=== PATIENT | male | born 1940 | race Caucasian/White ===

== ENCOUNTER 2021-04-07 12:33 | Inpatient (IN) | payer MEDICARE, OTHER ==
[~2021-04-07] VITALS: Ht 180.3 cm; Wt 64.1 kg
[2021-04-07 13:53] LABS: BASOPHIL 0.6 % (0-2); EOSINOPHIL 0.8 % (0-7); HCT 33.9 % (42.0-52.0); HGB 11.5 g/dl (13.2-18.0); LYMPHOCYTE 24.3 % (15-48); MCH 35.5 pg (25.0-31.0); MCHC 33.9 g/dL (32.0-36.0); MCV 104.6 fL (78.0-100.0); MONOCYTE 7.4 % (0-12); MPV 10.1 fL (6.0-9.5); NEUTROPHIL 66.7 % (41-80); NRBC 0; PLT 216 K/uL (150-400); RBC 3.24 M/uL (4.70-6.00); RDW 12.7 % (11.5-14.0); WBC 5.2 K/uL (4.0-10.5)
[2021-04-07 14:09] LABS: INR 2.76 (0.9-1.2); PROTHROMBIN TIME 27.8 SECONDS (11.4-13.6); PTT 49.9 SECONDS (22.2-34.7)
[2021-04-07 14:21] LABS: ALBUMIN 1.3 g/dL (3.4-5.0); BILIRUBIN - TOTAL 1.1 mg/dL (0.2-1.0); BUN/CREAT RATIO (CALC) 9.7 RATIO; CREATININE 1.03 mg/dL (0.67-1.17); GLOBULIN (CALCULATION) 3.2 g/dL; POTASSIUM 4.4 mmol/L (3.5-5.1); TOTAL PROTEIN 4.5 g/dL (6.4-8.2)
[2021-04-07 14:29] LABS: CKMB 1.3 ng/mL (0.0-3.6); PRO-BNP 1826 pg/mL (<450)
[2021-04-07 15:40] LABS: BILIRUBIN NEGATIVE (NEGATIVE); BLOOD NEGATIVE Ery/uL (NEGATIVE); CLARITY CLEAR (CLEAR); COLOR YELLOW (YELLOW); GLUCOSE (U) NORMAL (NORMAL); LEUKOCYTES NEGATIVE Leu/uL (NEGATIVE); NITRITE NEGATIVE (NEGATIVE); PROTEIN NEGATIVE (NEGATIVE)
[2021-04-07] MEDS ORDERED: LOVAZA1 GM PO (18:05)
[2021-04-07] MEDS ORDERED: VITAMIN B-121000 MC1 PO (18:05)
[2021-04-07] MEDS ORDERED: LOPRESSOR25 MG PO (18:07)
[2021-04-07] MEDS ORDERED: ELIQUIS5 MG PO (18:08)
[2021-04-07] MEDS ORDERED: PROTONIX40 M1 PO (18:10)
[2021-04-07] MEDS ORDERED: MOVE FREE ULTR1 EAC2 PO (18:12)
[2021-04-07] MEDS ORDERED: CITALOPRAM HBR10 MG PO (18:14)
[2021-04-07] MEDS ORDERED: IMODIUM2 MG PO (18:16)
[2021-04-07] MEDS ORDERED: CREON DR 36,001 EACH PO ×2 (20:47→20:48)
[2021-04-07] MEDS ORDERED: SYNTHROID25 MCG PO (20:49)
[2021-04-07] MEDS ORDERED: MELATONIN5 M2 PO (20:49)
[2021-04-07] MEDS ORDERED: PROBIOTIC & AC1 EACH PO (20:50)
[2021-04-07] MEDS ORDERED: VITAMIN B-650 MG PO (20:51)
[2021-04-08 07:28] LABS: IRON % SATURATION 151.3 %SAT (20-50)
[2021-04-08 07:49] LABS: BUN/CREAT RATIO (CALC) 9.9 RATIO; CREATININE 1.01 mg/dL (0.67-1.17); POTASSIUM 4.3 mmol/L (3.5-5.1)
[2021-04-08 07:51] LABS: HCT 31.6 % (42.0-52.0); HGB 10.9 g/dl (13.2-18.0); MCH 35.4 pg (25.0-31.0); MCHC 34.5 g/dL (32.0-36.0); MCV 102.6 fL (78.0-100.0); MPV 10.9 fL (6.0-9.5); RBC 3.08 M/uL (4.70-6.00); RDW 12.7 % (11.5-14.0); WBC 4.9 K/uL (4.0-10.5)
[2021-04-08 08:25] LABS: INR 2.82 (0.9-1.2); PROTHROMBIN TIME 28.3 SECONDS (11.4-13.6)
--- NOTE | 2021-04-08 11:04 | NUR ---
TC FROM [facility]. SHE HAD RECEIVED A CALL FROM ISAK, SONAL DAUGHTER. THEY ARE REQUESTING INTREPID HH UPON DISCHARGE.
[2021-04-08] MEDS ORDERED: LASIX40 MG PO (18:17)
[2021-04-08] MEDS ORDERED: SPIRONOLACTONE25 MG PO (18:17)
[2021-04-09 08:11] LABS: HBSAG SCREEN Negative (Negative); HEP B CORE AB, TOT Negative (Negative); HEP C VIRUS AB <0.1 (0.0-0.9)
== END 2021-04-08 20:00 | disposition home or self-care (01) | DRG 433 ==
LOC: FER 12:33 → FMS 16:09
PROVIDERS: Emergency Medicine; ADMIT Internal Medicine
DX: K70.31 Alcoholic cirrhosis of liver with ascites (principal); I48.20 Chronic atrial fibrillation, unspecified; C7A.8 Other malignant neuroendocrine tumors; F10.10 Alcohol abuse, uncomplicated; K52.9 Noninfective gastroenteritis and colitis, unspecified; K86.81 Exocrine pancreatic insufficiency; K86.89 Other specified diseases of pancreas; I34.0 Nonrheumatic mitral (valve) insufficiency; Z20.822 Contact with and (suspected) exposure to COVID-19; I10 Essential (primary) hypertension; K21.9 Gastro-esophageal reflux disease without esophagitis; N40.0 Benign prostatic hyperplasia without lower urinary tract symptoms; E03.9 Hypothyroidism, unspecified; D47.2 Monoclonal gammopathy; E53.8 Deficiency of other specified B group vitamins; K76.0 Fatty (change of) liver, not elsewhere classified; Z96.652 Presence of left artificial knee joint; Z98.890 Other specified postprocedural states; Z79.01 Long term (current) use of anticoagulants; Z79.899 Other long term (current) drug therapy
CPT/HCPCS: 36415; 71046; 80048; 80053; 81003; 82553; 82728; 83516; 83540; 83550; 83880; 83993; 84443; 84484; 85025; 85610; 85730; 86704; 86706; 86708; 86803; 87045; 87046; 87324; 87340; 87449; 87493; 93005; J1940; Q9967; U0002